=== PATIENT | male | born 1990 | race Two or more races ===

== ENCOUNTER 2016-08-01 21:59 | Emergency (ER) | payer SELFPAY ==
[~2016-08-01] VITALS: Ht 180.3 cm; Wt 113.4 kg
[2016-08-01 22:05] VITALS: BP 148/87
[2016-08-02] MEDS ORDERED: IBUPROFEN 600 MG TAB PO ONE (00:45)
[2016-08-02] MEDS ORDERED: methylPREDNISolone SOD SUCC 125 MG/2 ML VL ONE (00:48)
[2016-08-02] MEDS ORDERED: methylPREDNISolone SOD SUCC 125 MG/2 ML VL IM ONE (01:00)
== END 2016-08-02 01:00 | disposition home or self-care (01) ==
LOC: ER 22:13
DX: J03.90 Acute tonsillitis, unspecified (principal); R50.9 Fever, unspecified; R51 Headache; F17.210 Nicotine dependence, cigarettes, uncomplicated; Z88.0 Allergy status to penicillin
CPT/HCPCS: 96372; 99283; J2930

== ENCOUNTER 2025-01-15 11:13 | Emergency (ER) | payer OTHER ==
[~2025-01-15] VITALS: Ht 185.4 cm; Wt 125.5 kg
[2025-01-15 11:14] VITALS: BP 139/92; PULSE 79; RESP 22; TEMP 97.5; O2SAT 98
[2025-01-15] MEDS ORDERED: SODIUM CHLORIDE 0.9% 500 ML IVB ONE (14:00)
== END 2025-01-15 11:31 | disposition left against medical advice (07) ==
LOC: ER 11:13
DX: R10.9 Unspecified abdominal pain (principal); Z53.21 Procedure and treatment not carried out due to patient leaving prior to being seen by health care provider